=== PATIENT | male | born 1975 | race Caucasian/White ===

== ENCOUNTER 2017-01-21 12:23 | Inpatient (IN) | payer OTHER ==
[2017-01-21 15:46] VITALS: BMI 23.6
--- NOTE | 2017-01-21 17:51 | HP ---
COWS - Scale Resting Pulse: 0= [place] 80 or Below Sweatin= Chills/Flushing Restless Observation: 3= Extraneous Movement Pupil Size: 2= Moderately Dilated Bone or Joint Aches: 2= Severe Diffuse Aches Runny Nose/ Eye Tearin= Runny Nose/Eyes GI Upset > 30mins: 3= Vomiting/Diarrhea Tremor Observation: 2= Slight Tremor Visible Yawning Observation: 2= >3x During Session Anxiety or Irritability: 2=Irritable/Anxious Goose Flesh Skin: 0=Smooth Skin COWS Score: 19 Admission ROS S - HPI Chief Complaint: I NEED HELP TO STOP USING HEROIN Allergies/Adverse Reactions: Allergies Allergy/AdvReac Type Severity Reaction Status Date / Time No Known Allergies Allergy Verified 01/21/17 17:36 History of Present Illness: THIS 41 YEARS OLD MALE WITH HEROIN DEPENDENCE,SEEKING DETOX,LAST TREATMENT IN [place] [id number] HEPATITIS C NICOTINE DEPENDENCE NO SIGNIFICANT PERIOD OF SOBRIETY Exam Limitations: No Limitations - Ebola screening Have you traveled outside of the country in the last 21 days: No Have you had contact with anyone from an Ebola affected area: No Have you been sick,other than usual withdrawal symptoms: No Do you have a fever: No - Review of Systems Constitutional: Chills, Diaphoresis, Loss of Appetite, Malaise, Night Sweats, Changes in sleep, Weakness EENT: reports: Tearing, Nose Congestion Respiratory: reports: No Symptoms reported Cardiac: reports: No Symptoms Reported GI: reports: Diarrhea, Nausea, Vomiting, Abdominal cramping : reports: No Symptoms Reported Musculoskeletal: reports: Back Pain, Joint Pain, Muscle Pain, Joint Stiffness Integumentary: reports: Dryness Neuro: reports: No Symptoms reported, Tremors Endocrine: reports: No Symptoms Reported Hematology: reports: No Symptoms Reported Psychiatric: reports: No Sypmtoms Reported, Judgement Intact, Mood/Affect Appropiate, Orientated x3 Patient History - Patient Medical History Hx Anemia: No Hx Asthma: No Hx Chronic Obstructive Pulmonary Disease (COPD): No Hx Cancer: No Hx Cardiac Disorders: No Hx Hypertension: No Hx Hypercholesterolemia: No Hx Pacemaker: No HX Cerebrovascular Accident: No Hx Seizures: No Hx Dementia: No Hx Diabetes: No Hx Gastrointestinal Disorders: No Hx Liver Disease: No Hx Genitourinary Disorders: No Hx Sexually Transmitted Disorders: No Hx Renal Disease (ESRD): No Hx Thyroid Disease: No Hx Human Immunodeficiency Virus (HIV): No (04/30 NEGATIVE) Hx Hepatitis C: Yes Hx Depression: No Hx Suicide Attempt: No Hx Schizophrenia: No Other Medical History: NO SUICIDAL,NO HOMICIDAL - Patient Surgical History Past Surgical History: No - PPD History Previous Implant?: Yes Documented Results: Negative w/o proof Implanted On Prior [facility] Admission?: No PPD to be Administered?: Yes - Smoking Cessation Smoking history: Current every day smoker Have you smoked in the past 12 months: Yes Aproximately how many cigarettes per day: 20 Hx Chewing Tobacco Use: No Initiated information on smoking cessation: Yes 'Breaking Loose' booklet given: 01/21/17 - Substance & Tx. History Hx Alcohol Use: No Hx Substance Use: Yes Substance Use Type: Heroin Hx Substance Use Treatment: Yes ([facility] 2006) - Substances Abused Heroin Route: Injection Frequency: Daily Amount used: 20 bags Age of first use: 18 Date of Last Use: 01/21/17 Family Disease History - Family Disease History Family Disease History: Other: Father (DSA,), Brother (DSA) Admission Physical Exam S - Vital Signs Vital Signs: Vital Signs - 24 hr 01/21/17 15:43 Temperature 95.9 F L Pulse Rate 63 Respiratory 20 Rate Blood Pressure 132/89 - Physical General Appearance: Yes: Moderate Distress, Tremorous, Irritable, Sweating, Anxious HEENTM: Yes: Normal ENT Inspection, Normocephalic, LIYA, Pharynx Normal Respiratory: Yes: Lungs Clear, Normal Breath Sounds, No Respiratory Distress Neck: Yes: Within Normal Limits, Supple, Trachea in good position Breast: Yes: Within Normal Limits Cardiology: Yes: Within Normal Limits, Regular Rhythm, Regular Rate, S1, S2 Abdominal: Yes: Within Normal Limits, Normal Bowel Sounds, Non Tender, Flat, Soft, Decreased BS Genitourinary: Yes: Within Normal Limits Back: Yes: Muscle Spasm Musculoskeletal: Yes: Within Normal Limits, full range of Motion, Back pain, Muscle Pain Extremities: Yes: Within Normal Limits, Normal Range of Motion, Tremors Neurological: Yes: hardware engineering manager II-XII NML intact, Fully Oriented, Alert, Motor Strength 5/5 Integumentary: Yes: Dry Lymphatic: Yes: Within Normal Limits - Diagnostic (1) Opioid dependence with withdrawal Current Visit: Yes Status: Acute (2) Hepatitis C Current Visit: Yes Status: Acute (3) Nicotine dependence Current Visit: Yes Status: Acute Cleared for Admission [facility] - Detox or Rehab [facility] Level of Care: Medically Managed Detox Regimen/Protocol: Methadone [facility] Breath Alcohol Content Breath Alcohol Content: 0 Urine Drug Screen - Results Drug Screen Negative: No Urine Drug Screen Results: OPI-Opiates, BZO-Benzodiazepines
[2017-01-21] MEDS ORDERED: ACETAMINOPHEN 325 MG TABLET (FP) PO PRN (18:02)
[2017-01-21] MEDS ORDERED: MAGNESIUM CITRATE 300 ML BOTTLE PO PRN (18:02)
[2017-01-21] MEDS ORDERED: MAGNESIUM HYDROX 2400MG/30ML ORAL SUSPENSION 30 ML CUP PO PRN (18:02)
[2017-01-21] MEDS ORDERED: guaiFENesin/D-METHORPHAN HB 10 ML UNIT-DOSE CUPS PO PRN (18:02)
[2017-01-21] MEDS ORDERED: IBUPROFEN 400 MG TABLET (FP) PO PRN (18:02)
[2017-01-21] MEDS ORDERED: MAG HYDROX/AL HYDROX/SIMETH 30 ML UNIT-DOSE CUP PO PRN (18:02)
[2017-01-21] MEDS ORDERED: NICOTINE POLACRILEX 2 MG GUM BC PRN (18:02)
[2017-01-21] MEDS ORDERED: diphenhydrAMINE HCL 50 MG CAPSULE PO PRN (18:02)
[2017-01-21] MEDS ORDERED: hydrOXYzine PAMOATE 25 MG CAPSULE (FP) PO PRN (18:02)
[2017-01-21] MEDS ORDERED: LOPERAMIDE HCL 2 MG CAPSULE PO PRN (18:02)
[2017-01-21] MEDS ORDERED: P-EPHED 60MG/TRIPROLIDI 2.5MG TABLET PO PRN (18:02)
[2017-01-21] MEDS ORDERED: METHADONE HCL 10 MG TABLET (FOR DETOX USE ONLY) PO ONE ×2 (18:02→23:00)
[2017-01-21] MEDS ORDERED: MENTHOL/PHENOL 1 EACH UD MM PRN (18:02)
[2017-01-21] MEDS ORDERED: METHADONE HCL 10 MG TABLET (FOR DETOX USE ONLY) ONE (20:05)
[2017-01-21] MEDS: diazePAM 5 MG TABLET PO PRN (20:10)
[2017-01-21] MEDS: THIAMINE HCL 100 MG TABLET (FP) PO SCH (22:21)
[2017-01-21] MEDS: cloNIDine HCL 0.1 MG TABLET PO SCH (22:21)
[2017-01-21] MEDS: CYCLOBENZAPRINE HCL 10 MG TABLET (FP) PO PRN (22:21)
[2017-01-21 23:06] LABS: URINE APPEARANCE SLCLOUDY; URINE BILIRUBIN NEGATIVE (NEGATIVE); URINE BLOOD NEGATIVE (NEGATIVE); URINE COLOR DKYELLOW; URINE GLUCOSE (UA) NEGATIVE (NEGATIVE); URINE KETONE NEGATIVE (NEGATIVE); URINE NITRITE NEGATIVE (NEGATIVE); URINE PROTEIN NEGATIVE (NEGATIVE); URINE UROBILINOGEN NEGATIVE mg/dL (0.2-1.0)
[2017-01-22] MEDS: diazePAM 5 MG TABLET PO PRN ×4 (05:59→20:05)
[2017-01-22] MEDS: CYCLOBENZAPRINE HCL 10 MG TABLET (FP) PO PRN ×2 (05:59→22:08)
[2017-01-22] MEDS ORDERED: METHADONE HCL 10 MG TABLET (FOR DETOX USE ONLY) PO ONE (10:00)
[2017-01-22 10:22] LABS: MCH 31.2 pg (25.7-33.7); MCHC 33.2 g/dl (32.0-35.9); MEAN CELL VOLUME 93.9 fl (80-96); MEAN PLT VOLUME 9.5 fl (7.5-11.1); PLATELET COUNT 152 K/MM3 (134-434); RDW 12.7 % (11.9-15.9); WHITE BLOOD COUNT 4.5 K/mm3 (4.0-10.0)
--- NOTE | 2017-01-22 10:45 | EKG ---
Test Reason : Blood Pressure : / mmHG Vent. Rate : 061 BPM Atrial Rate : 061 BPM P-R Int : 174 ms QRS Dur : 100 ms QT Int : 444 ms P-R-T Axes : 072 077 049 degrees QTc Int : 446 ms NORMAL SINUS RHYTHM NORMAL ECG NO PREVIOUS ECGS AVAILABLE Confirmed by YESI WATSON, TRAN ([id number]) on 01/22/2017 10:45:14 AM Referred By: French Cantrell Confirmed By:TRAN KEY MD
[2017-01-22] MEDS: PRENATAL VITAMINS W/ FOLIC ACID TABLET (FP) PO SCH (10:50)
[2017-01-22] MEDS: cloNIDine HCL 0.1 MG TABLET PO SCH ×2 (10:50→22:09)
[2017-01-22 10:54] LABS: ALBUMIN 3.3 g/dl (3.4-5.0); ALK PHOS 77 U/L (45-117); ANION GAP 9 (8-16); BILIRUBIN,TOTAL 0.4 mg/dL (0.2-1.0); CALCIUM 8.6 mg/dL (8.5-10.1); CO2 27 mmol/L (21-32); CREATININE 0.9 mg/dL (0.7-1.3); GLUCOSE,RANDOM 82 mg/dL (74-106); SGOT/AST 25 U/L (15-37); SGPT/ALT 27 U/L (12-78); TOT PROT 6.6 g/dl (6.4-8.2)
[2017-01-22 10:58] LABS: URINE LEUK ESTERASE Negative (NEGATIVE)
--- NOTE | 2017-01-22 11:16 | PN ---
BHS COWS - Scale Resting Pulse: 1= [place] 81-100 Sweatin= Chills/Flushing Restless Observation: 3= Extraneous Movement Pupil Size: 0= Normal to Room Light Bone or Joint Aches: 4=Acute Joint/Muscle Pain Runny Nose/ Eye Tearin= Nasal Congestion GI Upset > 30mins: 1= Stomach Cramp Tremor Observation of Outstretched Hands: 1= Tremor [place], Not Seen Yawning Observation: 1= 1-2x During Session Anxiety or Irritability: 2=Irritable/Anxious Goose Flesh Skin: 0=Smooth Skin COWS Score: 15 BHS Progress Note (SOAP) Subjective: SWEATS/CHILLS,FATIGUE,IRRITABILITY,INTERMITTENT SLEEP. Objective: 01/22/17 11:15 Vital Signs Temperature 96.2 F L 01/22/17 09:53 Pulse Rate 56 L 01/22/17 09:53 Respiratory Rate 20 01/22/17 09:53 Blood Pressure 124/80 01/22/17 09:53 O2 Sat by Pulse Oximetry (%) Laboratory Last Values WBC 4.5 K/mm3 (4.0-10.0) 01/22/17 07:00 RBC 3.96 M/mm3 (4.00-5.60) L 01/22/17 07:00 Hgb 12.3 GM/dL (11.7-16.9) 01/22/17 07:00 Hct 37.1 % (35.4-49) 01/22/17 07:00 MCV 93.9 fl (80-96) 01/22/17 07:00 MCH 31.2 pg (25.7-33.7) 01/22/17 07:00 MCHC 33.2 g/dl (32.0-35.9) 01/22/17 07:00 RDW 12.7 % (11.9-15.9) 01/22/17 07:00 Plt Count 152 K/MM3 (134-434) 01/22/17 07:00 MPV 9.5 fl (7.5-11.1) 01/22/17 07:00 Sodium 141 mmol/L (136-145) 01/22/17 07:00 Potassium 4.0 mmol/L (3.5-5.1) 01/22/17 07:00 Chloride 105 mmol/L (98-107) 01/22/17 07:00 Carbon Dioxide 27 mmol/L (21-32) 01/22/17 07:00 Anion Gap 9 (8-16) 01/22/17 07:00 BUN 12 mg/dL (7-18) 01/22/17 07:00 Creatinine 0.9 mg/dL (0.7-1.3) 01/22/17 07:00 Creat Clearance w eGFR > 60 (>60) 01/22/17 07:00 Random Glucose 82 mg/dL (74-106) 01/22/17 07:00 Calcium 8.6 mg/dL (8.5-10.1) 01/22/17 07:00 Total Bilirubin 0.4 mg/dL (0.2-1.0) 01/22/17 07:00 AST 25 U/L (15-37) 01/22/17 07:00 ALT 27 U/L (12-78) 01/22/17 07:00 Alkaline Phosphatase 77 U/L (45-117) 01/22/17 07:00 Total Protein 6.6 g/dl (6.4-8.2) 01/22/17 07:00 Albumin 3.3 g/dl (3.4-5.0) L 01/22/17 07:00 Urine Color Dkyellow 01/21/17 21:15 Urine Appearance Slcloudy 01/21/17 21:15 Urine pH 5.0 (5.0-8.0) 01/21/17 21:15 Ur Specific [place] 1.025 (1.005-1.025) 01/21/17 21:15 Urine Protein Negative (NEGATIVE) 01/21/17 21:15 Urine Glucose (UA) Negative (NEGATIVE) 01/21/17 21:15 Urine Ketones Negative (NEGATIVE) 01/21/17 21:15 Urine Blood Negative (NEGATIVE) 01/21/17 21:15 Urine Nitrite Negative (NEGATIVE) 01/21/17 21:15 Urine Bilirubin Negative (NEGATIVE) 01/21/17 21:15 Urine Urobilinogen Negative mg/dL (0.2-1.0) 01/21/17 21:15 Ur Leukocyte Esterase Negative (NEGATIVE) 01/21/17 21:15 Assessment: 01/22/17 11:15 WITHDRAWAL SX Plan: CONTINUE DETOX
[2017-01-22] MEDS: THIAMINE HCL 100 MG TABLET (FP) PO SCH (22:08)
[2017-01-23] MEDS: diazePAM 5 MG TABLET PO PRN ×2 (02:21→10:39)
[2017-01-23 09:42] VITALS: BP 121/81; PULSE 64; TEMP 97.2
[2017-01-23] MEDS ORDERED: METHADONE HCL 5 MG TABLET (FOR DETOX USE ONLY) PO ONE (10:00)
[2017-01-23] MEDS: PRENATAL VITAMINS W/ FOLIC ACID TABLET (FP) PO SCH (10:39)
[2017-01-23] MEDS: cloNIDine HCL 0.1 MG TABLET PO SCH (10:39)
--- NOTE | 2017-01-23 10:47 | PN ---
BHS COWS - Scale Resting Pulse: 0= [place] 80 or Below Sweatin= Chills/Flushing Restless Observation: 3= Extraneous Movement Pupil Size: 2= Moderately Dilated Bone or Joint Aches: 4=Acute Joint/Muscle Pain Runny Nose/ Eye Tearin= Nasal Congestion GI Upset > 30mins: 0= None Tremor Observation of Outstretched Hands: 1= Tremor [place], Not Seen Yawning Observation: 1= 1-2x During Session Anxiety or Irritability: 2=Irritable/Anxious Goose Flesh Skin: 0=Smooth Skin COWS Score: 15 BHS Progress Note (SOAP) Subjective: ANXIETY,SWEATS,CHILLS,FATIGUE. Objective: 01/23/17 10:47 Vital Signs Temperature 97.2 F L 01/23/17 09:42 Pulse Rate 64 01/23/17 09:42 Respiratory Rate 18 01/23/17 09:42 Blood Pressure 121/81 01/23/17 09:42 O2 Sat by Pulse Oximetry (%) Laboratory Last Values WBC 4.5 K/mm3 (4.0-10.0) 01/22/17 07:00 RBC 3.96 M/mm3 (4.00-5.60) L 01/22/17 07:00 Hgb 12.3 GM/dL (11.7-16.9) 01/22/17 07:00 Hct 37.1 % (35.4-49) 01/22/17 07:00 MCV 93.9 fl (80-96) 01/22/17 07:00 MCH 31.2 pg (25.7-33.7) 01/22/17 07:00 MCHC 33.2 g/dl (32.0-35.9) 01/22/17 07:00 RDW 12.7 % (11.9-15.9) 01/22/17 07:00 Plt Count 152 K/MM3 (134-434) 01/22/17 07:00 MPV 9.5 fl (7.5-11.1) 01/22/17 07:00 Sodium 141 mmol/L (136-145) 01/22/17 07:00 Potassium 4.0 mmol/L (3.5-5.1) 01/22/17 07:00 Chloride 105 mmol/L (98-107) 01/22/17 07:00 Carbon Dioxide 27 mmol/L (21-32) 01/22/17 07:00 Anion Gap 9 (8-16) 01/22/17 07:00 BUN 12 mg/dL (7-18) 01/22/17 07:00 Creatinine 0.9 mg/dL (0.7-1.3) 01/22/17 07:00 Creat Clearance w eGFR > 60 (>60) 01/22/17 07:00 Random Glucose 82 mg/dL (74-106) 01/22/17 07:00 Calcium 8.6 mg/dL (8.5-10.1) 01/22/17 07:00 Total Bilirubin 0.4 mg/dL (0.2-1.0) 01/22/17 07:00 AST 25 U/L (15-37) 01/22/17 07:00 ALT 27 U/L (12-78) 01/22/17 07:00 Alkaline Phosphatase 77 U/L (45-117) 01/22/17 07:00 Total Protein 6.6 g/dl (6.4-8.2) 01/22/17 07:00 Albumin 3.3 g/dl (3.4-5.0) L 01/22/17 07:00 Urine Color Dkyellow 01/21/17 21:15 Urine Appearance Slcloudy 01/21/17 21:15 Urine pH 5.0 (5.0-8.0) 01/21/17 21:15 Ur Specific [place] 1.025 (1.005-1.025) 01/21/17 21:15 Urine Protein Negative (NEGATIVE) 01/21/17 21:15 Urine Glucose (UA) Negative (NEGATIVE) 01/21/17 21:15 Urine Ketones Negative (NEGATIVE) 01/21/17 21:15 Urine Blood Negative (NEGATIVE) 01/21/17 21:15 Urine Nitrite Negative (NEGATIVE) 01/21/17 21:15 Urine Bilirubin Negative (NEGATIVE) 01/21/17 21:15 Urine Urobilinogen Negative mg/dL (0.2-1.0) 01/21/17 21:15 Ur Leukocyte Esterase Negative (NEGATIVE) 01/21/17 21:15 RPR Titer Nonreactive (NONREACTIVE) 01/22/17 05:00 Assessment: 01/23/17 10:47 WITHDRAWAL SX Plan: CONTINUE DETOX
--- NOTE | 2017-01-23 11:02 | DS ---
[facility] Detox Discharge Summary Admission Date: 01/21/17 Discharge Date: 01/23/17 - History Present History: Opioid Dependence Additional Comments: PT DECLINED TO CONTINUE WITH DETOX. ALL EFFORTS TO ENCOURAGE TX FAILED. ALERT O X 3. NAD. Pertinent Past History: HEP C - Physical Exam Results Vital Signs: Vital Signs Temperature 97.2 F L 01/23/17 09:42 Pulse Rate 64 01/23/17 09:42 Respiratory Rate 18 01/23/17 09:42 Blood Pressure 121/81 01/23/17 09:42 O2 Sat by Pulse Oximetry (%) Pertinent Admission Physical Exam Findings: WITHDRAWAL SX Laboratory Last Values WBC 4.5 K/mm3 (4.0-10.0) 01/22/17 07:00 RBC 3.96 M/mm3 (4.00-5.60) L 01/22/17 07:00 Hgb 12.3 GM/dL (11.7-16.9) 01/22/17 07:00 Hct 37.1 % (35.4-49) 01/22/17 07:00 MCV 93.9 fl (80-96) 01/22/17 07:00 MCH 31.2 pg (25.7-33.7) 01/22/17 07:00 MCHC 33.2 g/dl (32.0-35.9) 01/22/17 07:00 RDW 12.7 % (11.9-15.9) 01/22/17 07:00 Plt Count 152 K/MM3 (134-434) 01/22/17 07:00 MPV 9.5 fl (7.5-11.1) 01/22/17 07:00 Sodium 141 mmol/L (136-145) 01/22/17 07:00 Potassium 4.0 mmol/L (3.5-5.1) 01/22/17 07:00 Chloride 105 mmol/L (98-107) 01/22/17 07:00 Carbon Dioxide 27 mmol/L (21-32) 01/22/17 07:00 Anion Gap 9 (8-16) 01/22/17 07:00 BUN 12 mg/dL (7-18) 01/22/17 07:00 Creatinine 0.9 mg/dL (0.7-1.3) 01/22/17 07:00 Creat Clearance w eGFR > 60 (>60) 01/22/17 07:00 Random Glucose 82 mg/dL (74-106) 01/22/17 07:00 Calcium 8.6 mg/dL (8.5-10.1) 01/22/17 07:00 Total Bilirubin 0.4 mg/dL (0.2-1.0) 01/22/17 07:00 AST 25 U/L (15-37) 01/22/17 07:00 ALT 27 U/L (12-78) 01/22/17 07:00 Alkaline Phosphatase 77 U/L (45-117) 01/22/17 07:00 Total Protein 6.6 g/dl (6.4-8.2) 01/22/17 07:00 Albumin 3.3 g/dl (3.4-5.0) L 01/22/17 07:00 Urine Color Dkyellow 01/21/17 21:15 Urine Appearance Slcloudy 01/21/17 21:15 Urine pH 5.0 (5.0-8.0) 01/21/17 21:15 Ur Specific [place] 1.025 (1.005-1.025) 01/21/17 21:15 Urine Protein Negative (NEGATIVE) 01/21/17 21:15 Urine Glucose (UA) Negative (NEGATIVE) 01/21/17 21:15 Urine Ketones Negative (NEGATIVE) 01/21/17 21:15 Urine Blood Negative (NEGATIVE) 01/21/17 21:15 Urine Nitrite Negative (NEGATIVE) 01/21/17 21:15 Urine Bilirubin Negative (NEGATIVE) 01/21/17 21:15 Urine Urobilinogen Negative mg/dL (0.2-1.0) 01/21/17 21:15 Ur Leukocyte Esterase Negative (NEGATIVE) 01/21/17 21:15 RPR Titer Nonreactive (NONREACTIVE) 01/22/17 05:00 - Treatment Hospital Course: Discharged Condition Good - Medication Discharge Medications: Ambulatory Orders NK [No Known Home Medication] 01/21/17 - Diagnosis (1) Hepatitis C Status: Chronic Qualifiers: Hepatic coma status: without hepatic coma (2) Nicotine dependence Status: Acute Qualifiers: Nicotine product type: cigarettes Substance use status: in withdrawal Qualified Code(s): F17.213 - Nicotine dependence, cigarettes, with withdrawal; F17.213 - Nicotine dependence, cigarettes, with withdrawal (3) Opioid dependence with withdrawal Status: Acute - AMA Did Patient Leave Against Medical Advice: Yes (AMA PERSONAL REASONS)
[2017-01-24] MEDS ORDERED: METHADONE HCL 5 MG TABLET (FOR DETOX USE ONLY) PO ONE (10:00)
[2017-01-25] MEDS ORDERED: METHADONE HCL 10 MG TABLET (FOR DETOX USE ONLY) PO ONE (10:00)
[2017-01-26] MEDS ORDERED: METHADONE HCL 5 MG TABLET (FOR DETOX USE ONLY) PO ONE (06:00)
== END 2017-01-23 11:15 | disposition left against medical advice (07) | DRG 770 ==
LOC: YASAS 12:23 → Y3N 19:14
PROVIDERS: ADMIT Internal Medicine; ATTEND Internal Medicine
PROC: HZ2ZZZZ Detoxification Services for Substance Abuse Treatment (ICD-10-PCS; principal; 2017-01-21)
DX: F11.23 Opioid dependence with withdrawal (principal); F17.213 Nicotine dependence, cigarettes, with withdrawal; B18.2 Chronic viral hepatitis C
CPT/HCPCS: 36415; 80053; 81003; 85027; 86593; 93005; 93010